=== PATIENT | male | born 1995 | race Caucasian/White ===

== ENCOUNTER 2022-01-08 16:55 | Emergency (ER) | payer MEDICAID ==
[~2022-01-08] VITALS: Ht 170.2 cm; Wt 63.0 kg
[2022-01-08 18:10] VITALS: BP 130/86
--- NOTE | 2022-01-08 18:52 | NUR ---
NIKKIE Salgado examing patient,.
[2022-01-08 19:52] LABS: BASOPHILS % (AUTO) 0.4 % (0.0-2.0); EOSINOPHILS % (AUTO) 0.4 % (0.0-4.0); HEMATOCRIT 45.8 % (36-52); HEMOGLOBIN 16.3 g/dL (12.0-18.0); LYMPHOCYTES # (AUTO) 2.9 K/uL (2.0-11.5); LYMPHOCYTES % (AUTO) 37.8 % (20.5-51.1); MEAN CORPUSCULAR HEMOGLOBIN 31 pg (27-31); MEAN CORPUSCULAR HGB CONC 36 g/dL (33-37); MONOCYTES # (AUTO) 0.4 K/uL (0.8-1.0); MONOCYTES % (AUTO) 5.9 % (1.7-9.3); NEUTROPHILS # (AUTO) 4.2 K/uL (1.8-7.7); NEUTROPHILS % (AUTO) 55.5 % (42.2-75.2); PLATELET COUNT (AUTO) 254 K/uL (140-450); RED CELL DISTRIBUTION WIDTH 13.2 % (11.6-13.7); WHITE BLOOD COUNT (AUTO) 7.6 K/uL (4.8-10.8)
[2022-01-08 20:13] LABS: ALBUMIN 4.4 g/dL (3.4-5.0); ANION GAP 14.1 (8-16); CREATININE 0.7 mg/dL (0.6-1.3); POTASSIUM 4.1 mmol/L (3.5-5.1)
--- NOTE | 2022-01-08 21:49 | NUR ---
PATIENT LEFT WITHOUT BEING SEEN BY DR. Coates. NO FURTHER CARE PROVIDED FOR PATIENT. Addendum: 01/09/22 at 0145 by ALIDA Amendment undone in EDM - 01/09/22 at 0145 by ALIDA PATIENT ELOPED FROM FACILITY. DISCHARGE INSTRUCTIONS NOT GIVEN TO PATIENT. NIKKIE Salgado NOTIFIED.
--- NOTE | 2022-01-08 21:49 | NUR ---
PATIENT ELOPED FROM FACILITY. DISCHARGE INSTRUCTIONS NOT GIVEN TO PATIENT. NIKKIE Salgado NOTIFIED.
[2022-01-09] MEDS ORDERED: FAMO-289 PO (13:33)
== END 2022-01-09 00:20 | disposition left against medical advice (07) ==
LOC: MED 16:55
DX: Z00.00 Encounter for general adult medical examination without abnormal findings (principal); R10.11 Right upper quadrant pain
CPT/HCPCS: 36415; 76705; 80053; 81002; 83690; 85025; 99284; Q0092

== ENCOUNTER 2022-01-09 10:23 | Emergency (ER) | payer MEDICAID ==
[~2022-01-09] VITALS: Ht 167.6 cm; Wt 64.9 kg
[2022-01-09 10:30] VITALS: BP 135/94
--- NOTE | 2022-01-09 10:52 | NUR ---
PT AMBULATED TO ER BED 1
--- NOTE | 2022-01-09 11:24 | NUR ---
C/O EPIGASTRIC PAIN SINCE LAST MONTH. PT STATES HE WAS HERE YESTERDAY AND HAD AN ULTRASOUND BUT HAD TO LEAVE TO WORK. PT WAS GIVEN AN ANTACID AT [facility] BUT HAD NO RELIEF, DENIES N/V/D. PMH: ERIBERTO GAITAN
--- NOTE | 2022-01-09 12:00 | NUR ---
MT CALLED PHARMACY TO BRING GI COCKTAIL TO ER, INSUFFICIENT QUANTITY IN [facility]NI CELL
[2022-01-09] MEDS ORDERED: ALUMINUM HYD/MAG/SIMETHICONE 30 ML UDC ONE (12:09)
[2022-01-09] MEDS ORDERED: DICYCLOMINE HCL LIQUID 10 MG/5 ML UDC ONE (12:09)
[2022-01-09] MEDS: DICYCLOMINE HCL LIQUID 20 MG, ALUMINUM HYD/MAG/SIMETHICONE 30 ML, LIDOCAINE VISCOUS 2% ... PO ONE ×3 (12:12)
--- NOTE | 2022-01-09 12:28 | NUR ---
PT STATES HE HAS RELIEF FROM GI COCKTAIL
[2022-01-09] MEDS ORDERED: FAMO-289 PO (13:33)
--- NOTE | 2022-01-09 13:43 | NUR ---
Patient discharged with v/s stable. Written and verbal after care instructions given and explained. Patient alert, oriented and verbalized understanding of instructions. Ambulatory with steady gait. All questions addressed prior to discharge. ID band removed. Patient advised to follow up with PMD. Rx of Famotidine given. Patient educated on indication of medication including possible reaction and side effects. Opportunity to ask questions provided and answered.
[2022-01-09 13:44] VITALS: BP 130/82
== END 2022-01-09 13:43 | disposition home or self-care (01) ==
LOC: MED 10:23
DX: K21.9 Gastro-esophageal reflux disease without esophagitis (principal); Z79.899 Other long term (current) drug therapy
CPT/HCPCS: 99282